=== PATIENT | female | born 1925 | race Caucasian/White ===

== ENCOUNTER → 2016-08-29 | Outpatient (CLI) | payer OTHER, BC ==
[~2016-08-29] MED LIST: ACET-1311 PO; ALBU0.08 INH; ATOR-26 PO; CEFU1TAB35 PO; CHOL100027 PO; CLON0.5T3 PO; CLOP1TAB15 PO; CTP1CL PO; DOCU-94 PO; FLUT0.0529 NAE; FURO-85 PO; GABA-113 PO; HYDR-5688 PO; KCLP20 PO; LETR2TAB PO; LEVO88TA3 PO; LSN20 OR; METO100T14 PO; MULT-916 PO; OMEG10007 PO; ONDA4TAB10 SL; PANT40TA PO; RIVA1.5T PO; SERT1TAB68 PO
[2016-08-29 12:32] LABS: BLOOD UREA NITROGEN 17 mg/dl (7-18); BUN/CREATININE RATIO 21.1 (10-20); CALCIUM 8.7 mg/dl (8.5-10.1); CARBON DIOXIDE 29 mmol/L (21-32); CHLORIDE 105 mmol/L (98-107); CREATININE 0.79 mg/dl (0.60-1.20); GLUCOSE 89 mg/dl (70-99); SODIUM 142 mmol/L (136-145)
== END | disposition home or self-care (01) ==
LOC: C.LABSALHI 12:05
PROVIDERS: ATTEND Family Medicine
DX: I10 Essential (primary) hypertension (principal)